=== PATIENT | female | born 1945 | race Caucasian/White ===

== ENCOUNTER 2025-04-17 00:53 | Inpatient (IN) | payer MEDICARE, SELFPAY ==
[2025-04-16 18:38] VITALS: BP 190/99
--- NOTE | 2025-04-16 19:48 | ED.GENMED ---
History of Present Illness
General
Chief Complaint: Abdominal Pain
Time Seen by Provider: 04/16/25 19:30
History of Present Illness
History of Present Illness:
79-year-old female presents to the emergency department for evaluation of right lower quadrant abdominal pain that has been ongoing for the past 2 days. She reports nausea, chills, and difficulty urinating. Denies vomiting or diarrhea. No fever,
sweats, dysuria, or hematuria. Denies history of abdominal surgeries
Review of Systems
Review of Systems
Allergies reviewed?: Yes
All Other Systems: ROS reviewed and negative except as documented in HPI and ROS
Phy Exam
Physical Exam
Physical Exam:
GEN: Well appearing, NAD, WDWN
HEENT: Oral mucosa moist, no scleral icterus
Cardiac: Regular rate and rhythm, no murmur
Lung: No respiratory distress, no tachypnea
Abdomen: Soft, focal right lower quadrant tenderness, no rigidity
MSK: No gross deformity or injuries
Skin: Good color, no pallor or jaundice, no rashes
Neuro: AO x3, moves all extremities freely
Psych: Calm, cooperative
Course
Orders/Labs/Results
Orders:
Orders
04/16/25 19:47
CT Abd/pel Without Iv Or Oral Urgent
Reason For Exam: RLQ pain
04/16/25 20:07
Complete Blood Count/With Diff Urgent
Comprehensive Metabolic Panel Urgent
04/16/25 21:37
HYDROmorphone [Dilaudid] 0.25 mg IV NOW STA
04/16/25 22:56
0.9% Sodium Chloride 1000 ml [Nss] 1,000 ml IV BOLUS
CefTRIAXone [Rocephin] 1,000 mg IV NOW STA
04/16/25 23:01
Urinalysis Reflex To Culture Urgent
Date Specimen was Collected: 04/16/25
Time Specimen was Collected: 22:56
Urine Microscopic Reflex Cult Urgent
Urine Culture Urgent
SHANELL Source: U
Specimen Description:
Date Specimen was Collected: 04/16/25
Time Specimen was Collected: 22:56
04/17/25 00:47
Admit/Transfer Patient As Directed
Co-Sign Provider:
Level of Care: Inpatient admission
Assign to:: Medical/Surgical
Physician / Group: Nemesio
Diagnosis: KULDIP, Hydronephrosis, Bladder Cancer
Reason for Hospitalization: KULDIP, Hydronephrosis, Bladder Cancer
Expected length of stay greater than two midnights?: Yes
ELOS- Estimated Length of Stay in days: 4
I certify the patient meets the requirements for IP care: Yes
Code Status As Directed
Resuscitation Status: Full Code
PRN Pain Medication Management As Directed
May give lesser potent ordered pain med per pt: Yes
preference::
Protocol:: Medication orders for pain may be administered in a
manner that supports deferring to patient preference
when the pt is:
- Requesting an ordered lesser potent pain medication.
Least to most potent pain medications are defined
as: acetaminophen < NSAID < tramadol < opioids
(morphine, oxycodone, hydromorphone).
- Requesting a lesser dose of the same medication IF
ORDERED.
- Requesting a less intrusive route of administration
if both routes are prescribed by the provider (PO <
IV).
Abnormal Lab Results
04/16/25 04/16/25
20:07 23:01
RBC 3.62 L 10^6/uL
(4.20-5.40)
Hgb 10.6 L g/dL
(12.0-16.0)
Hct 30.9 L %
(37.0-47.0)
Abs Immat Gran (auto) 0.1 H 10^3/uL
(0-0.05)
Absolute Neuts (auto) 9.4 H 10^3/uL
(1.4-6.5)
Absolute Lymphs (auto) 0.3 L 10^3/uL
(1.2-3.4)
Immature Gran % 0.6 H %
(0-0.5)
Neutrophils % 90.7 H %
(42.2-75.2)
Lymphocytes % 2.9 L %
(20.5-51.1)
Sodium 133 L mmol/L
(135-145)
Carbon Dioxide 17 L mmol/L
(22-30)
BUN 34 H mg/dl
(7-17)
Creatinine 2.0 H mg/dL
(0.6-1.0)
Glucose 115 H mg/dl
(70-99)
Ur Occult Blood Reflex 4+ A
(Negative)
Leukocyte Esterase Rfl 3+ A
(Negative)
Urine RBC >100 A /HPF
(0-2)
Urine WBC (Reflex) >100 A /HPF
(0-5)
Urine Bacteria (Reflex) Many A
(Negative)
Urine Albumin (Reflex) 3+ A
(Neg - Trace)
04/16/25 20:07
04/16/25 20:07
Vital Signs
Initial and Last Documented VS:
Initial Vital Signs
Temp Pulse Resp BP Pulse Ox
99.3 F 85 20 190/99 98
04/16/25 18:38 04/16/25 18:38 04/16/25 18:38 04/16/25 18:38 04/16/25 18:38
Last Documented Vital Signs
Temp Pulse Resp BP Pulse Ox
99.3 F 86 20 181/88 95
04/16/25 18:38 04/17/25 00:15 04/17/25 00:15 04/17/25 00:00 04/17/25 00:00
MDM/Problems Addressed
MDM/Problems Addressed:
Patient's right-sided hydronephrosis is noted again today, and combination with her visibly bloody urine this is concerning for recurrence of her bladder tumor with ureteral obstruction versus acute UTI with pyelonephritis. Will cover with
antibiotics given the urinalysis findings particular given presence of ureteral stent. KULDIP may be a product of hypovolemia coupled with urinary obstructive pathology. agrees with plan for admission but would prefer any urologic
interventions to be discussed with her outpatient urology team at [facility]
*Pulse Oximetry
SaO2: 98
Oxygen Mode of Delivery: Room air
Patient hypoxic: no
*Critical Care Note
Total Time (30-74mins, 75-104mins- exclusive of procedures): Not Applicable
Update Note
Update Note:
1052: Received records from [facility], the patient was admitted to that facility on March 13 due to hematuria with left hydronephrosis, during hospitalization she underwent cystoscopy with transurethral resection of a bladder
tumor, then underwent left nephrostomy tube. This tube was apparently removed within the past 2 weeks according to her . During that hospitalization the patient's BUN and creatinine were 14 and 0.99 respectively. Prior urine cultures from
earlier February grew Klebsiella, pansensitive. On April [address] of the abdomen pelvis with IV contrast that showed mild new right hydronephrosis and hydroureter.
ED Attending Note
-
Portions of this chart may have been created with voice recognition software.� Occasional wrong word or��sound alike� substitutions may have occurred due to the inherent limitations of voice recognition software.
Discharge Plan
Departure
Patient Disposition: Admit
Date of Disposition: 04/16/25
Time of Disposition: 23:45
Admit to: Med/Surg
Presentation/result/management discussed w/ accepting MD/DO: Hospitalist
Discharge Problem:
Acute kidney injury, Acute pyelonephritis
Interventions
Interventions:
*General Assessment Last Done: 04/16/25 20:04
*Neglect/Abuse Screening Last Done: 04/16/25 18:38
*ED COVID-19 Vaccine History Last Done: 04/16/25 20:04
*ED Influenza Vaccine History Last Done: 04/16/25 20:04
[facility] Fall Risk Assessment Tool Last Done: 04/16/25 20:05
*Risk Screen - Suicide (C-SSRS) Last Done: 04/16/25 20:04
QQ-[id number] Assessment Last Done: 04/16/25 20:15
[2025-04-16 20:03] VITALS: BP 189/90
[2025-04-16 20:04] VITALS: BMI 21.4
[2025-04-16 20:16] LABS: Hematocrit 30.9 % (37.0-47.0); Hemoglobin 10.6 g/dL (12.0-16.0); Mean Corp Hgb Conc. 34.3 g/dL (33.0-37.0); Mean Corpuscular Volume 85.4 fL (81.0-99.0); Nucleated Red Blood Cells % 0 %; Platelet Count 255 10^3/uL (130-400); Red Cell Dist. Width 12.8 % (11.5-14.5)
[2025-04-16 20:36] LABS: ALT (SGPT) 17 U/L (0-35); AST (SGOT) 34 U/L (14-36); Albumin 4.3 g/dl (3.5-5.0); Alkaline Phosphatase 49 U/L (38-126); Blood Urea Nitrogen 34 mg/dl (7-17); Calcium 8.9 mg/dl (8.4-10.2); Carbon Dioxide 17 mmol/L (22-30); Chloride 104 mmol/L (98-107); Estimated Creatinine Clearance 17 ml/min; Glucose 115 mg/dl (70-99); Potassium 4.4 mmol/L (3.5-5.1); Sodium 133 mmol/L (135-145); Total Protein 6.9 g/dl (6.3-8.2); eGFR 24.64
[2025-04-16 21:34] VITALS: BP 196/86
[2025-04-16] MEDS: DILAUDID 0.25 MG IV (21:45)
[2025-04-16 22:28] VITALS: BP 181/86
[2025-04-16] MEDS: ROCEPHIN 1000 MG IV (23:04)
[2025-04-16] MEDS: NSS 1000 IV (23:04)
[2025-04-16 23:11] VITALS: BP 178/82
[2025-04-16 23:44] LABS: Urine Character Cloudy (Clear)
[2025-04-17] VITALS (8 sets, daily range): BP systolic 152–187; BP diastolic 81–88; BMI 21.2
[2025-04-17 00:09] LABS: Urine Red Blood Cell >100 /HPF (0-2); Urine Squamous Cell >30 /LPF (Few); Urine Urothelial Cell >30 /LPF (FEW)
[2025-04-17 00:11] LABS: Urine White Cell >100 /HPF (0-5)
--- NOTE | 2025-04-17 00:49 | HPS.HSE ---
Family Physician
-
Family Physician: Karan Vilchis
Chief Complaint
-
Abd Pain, Fatigue
History of Present Illness
Patient is an 79y F with PMH significant for breast cancer, uterine cancer and recently diagnosed bladder cancer who presents to ED complaining of generalized fatigue and RLQ abdominal pain. History obtained from patient and from via
phone. Patient was hospitalized at [facility] 03/13 - 03/16 for evaluation of persistent hematuria which had been present for about a month at that point. She had completed two courses of outpatient abx for suspected UTI with no
improvement in the hematuria. Imaging at [facility] revealed L hydronephrosis with 5.5cm bladder mass. Patient underwent TURBT on 03/14. Pathology revealed invasive high-grade bladder carcinoma. She underwent L PCN on 03/15 and was discharged to
home on 03/16. Patient has been very busy since that time with additional outpatient testing, imaging studies, physician follow-ups, etc.
She underwent conversion of L PCN to double-J stent on 03/26. CT Chest (multiple, scattered pulm nodules) on 04/08. And bone scan (no abnormal uptake) on 04/08.
notes that she has been significantly more fatigued over the past several days. She has noted increased urinary frequency as well as some recurrent / intermittent hematuria.
Today she slept for much of the day. After waking from an afternoon nap, patient complained of RLQ abdominal pain.
The pain was quite severe and patient presented to the ED for further evaluation and treatment.
At the time of my examination, patient is sleeping comfortably. When awakened she is somewhat confused due to sleep, Dilaudid, etc and has some difficulty contributing to this history.
Medical History
Past Medical History
Past Medical History: Reports Other
Additional Past Medical History:
Bladder Carcinoma
Breast Cancer s/p Lumpectomy
Uterine Cancer s/p Hysterectomy
GERD / Mcdaniel's Esophagus
Past Surgical History: Reports Other
Additional Past Surgical History:
TURBT (03/14) - 5.5cm invasive high-grade bladder carcinoma
Left PCN (03/15)
Conversion of L PCN to L Double-J Stent (03/26)
Right Lumpectomy
Hysterectomy
Social History
Tobacco: Non-smoker
Alcohol: Occasional
Drug: None
Personal:
Living: With Family
Family History
Family History: Not pertinent
Allergies / Home Medications
Allergies reflects when Allergies were last updated in [employer].
Home Medications with original date entered in [employer]
Allergy/Medication List:
Allergies
Allergy/AdvReac Type Severity Reaction Status Date / Time
ciprofloxacin Allergy Mild Unknown Verified 04/16/25 21:55
moxifloxacin (From Avelox) Allergy Mild Unknown Verified 04/16/25 21:55
fluroquinolones Allergy Unknown Uncoded 04/16/25 21:55
hay Allergy Unknown Uncoded 04/16/25 20:07
Home Medications
acetaminophen 500 mg tablet 500 mg PO Q6H PRN pain 04/16/25
diphenhydramine HCl 25 mg capsule (Benadryl) 25 mg PO HS PRN sleep 04/16/25
rabeprazole 20 mg tablet,delayed release (AcipHex) 20 mg PO DAILY 04/16/25
tamoxifen 20 mg tablet 20 mg PO DAILY 04/16/25
Review of Systems
-
History Source: Patient
A 12 point ROS was completed and negative except as noted: Yes
Constitutional: Reports Fatigue; Denies Fever or Chills
Respiratory: Denies Cough or Trouble Breathing
Cardiac: Denies Chest Pain or Palpitations
Abdomen/GI: Reports Abdominal Pain; Denies Nausea, Vomiting, Diarrhea, Constipated, Bloody Stools or Black Stools
: Reports Frequency, Flank Pain and Bleeding; Denies Dysuria or Difficulty Voiding
Musculoskeletal: Denies Joint Pain or Edema
Neurological: Denies Dizzy or Headache
Psych: Denies Depression or Anxiety
Physical Exam
Vital Signs
Vital Signs
Temp Pulse Resp BP Pulse Ox
99.3 F 86 20 181/88 95
04/16/25 18:38 04/17/25 00:15 04/17/25 00:15 04/17/25 00:00 04/17/25 00:00
Physical Exam
General: Other (79y F sleeping comfortably. Easily awakened. No acute distress. [id number].)
HEENT: Moist mucous membranes and PERRLA
Respiratory: Clear; No Wheezes, Rales or Rhonchi
Cardiac: S1/S2 and Regular Rhythm; No Murmur
GI: Soft, Non Distended, Normal Bowel Sounds and Other (Pos RLQ tenderness with voluntary guarding. Pos BS.)
Genito-urinary: Costovertebral angle tend (R CVAT.)
Musculoskeletal: No Clubbing, No Cyanosis and No Edema
Neuro: Awake, Alert and Nonfocal/grossly intact
Laboratory Results
-
04/16/25 20:07
04/16/25 20:07
Laboratory Results
Total Bilirubin 0.8 mg/dl (0.2-1.3) 04/16/25 20:07
AST 34 U/L (14-36) 04/16/25 20:07
ALT 17 U/L (0-35) 04/16/25 20:07
Alkaline Phosphatase 49 U/L (38-126) 04/16/25 20:07
Impression/Plan
-
A/P: Patient is an 79y F with PMH significant for recently diagnosed bladder cancer who presents to ED complaining of RLQ abdominal pain and urinary symptoms.
Right Hydronephrosis
KULDIP
- Admit for further evaluation and treatment.
- ? ascending UTI / infectious process versus obstructive / malignant process.
- SCr = 2.0 compared to recent baseline of 0.9.
- Cover with IV abx for now pending culture data.
- IVF support and follow for any improvement in renal function.
- Urology evaluation for additional recommendations.
- ? Cysto / stent versus R PCN.
- Follow temperature curve and monitor for any new / worsening symptoms.
- Also note that serial imaging from [facility] shows progressive volume loss / atrophy of the L kidney over the past month - potentially also contributing to declining renal function.
Invasive High-Grade Bladder Cancer
- Recent diagnosis. Suspect metastatic based on scattered pulmonary nodules, liver lesions, etc.
- Extensive records reviewed from [facility] ('Other Health Care Facility Information' scanned into chart).
- Tentative plan per is to begin immunotherapy on Saturday and have CT-guided lung nodule biopsy on Saturday.
Normocytic Anemia
- Fairly stable compared to recent baseline (11.1 to 10.6).
- Intermittent hematuria noted - due to infection v malignancy.
- Follow for changes in H&H. Check iron studies and replace if indicated.
GERD / Mcdaniel's Esophagus
- Continue daily PPI.
Confusion / Mild Dementia
- Patient with some noted confusion during [facility] stay as well.
- Suspect degree of underlying / mild dementia exacerbated by hospitalization / acute illness.
- Monitor for any agitation / acute delirium / etc.
DVT Prophylaxis: SCDs
Code Status: Full
[2025-04-17] MEDS: NSS 1000 IV ×2 (03:40→17:44)
[2025-04-17 07:33] LABS: Hematocrit 29.4 % (37.0-47.0); Hemoglobin 10.2 g/dL (12.0-16.0); Mean Corp Hgb Conc. 34.7 g/dL (33.0-37.0); Mean Corpuscular Volume 87.2 fL (81.0-99.0); Platelet Count 255 10^3/uL (130-400); Red Cell Dist. Width 13.0 % (11.5-14.5)
[2025-04-17 08:13] LABS: Blood Urea Nitrogen 38 mg/dl (7-17); Calcium 8.5 mg/dl (8.4-10.2); Carbon Dioxide 17 mmol/L (22-30); Chloride 107 mmol/L (98-107); Estimated Creatinine Clearance 11 ml/min; Glucose 114 mg/dl (70-99); Iron 88 ug/dl (37-170); Potassium 4.6 mmol/L (3.5-5.1); Sodium 135 mmol/L (135-145); eGFR 14.56
--- NOTE | 2025-04-17 08:22 | W.PN.UPDATE ---
Update Note
Progress Note Update
81 pages of external medical records from [facility] reviewed
Prior urologic history as follows:
- hospitalized [facility] 03/13 - 03/16 for persistent gross hemturia x1 mo
- CT imaging => left hydronephrosis and 5.5 cm bladder mass
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
- 03/15: s/p left PCN insertion by IR
- 03/26: conversion of left PCN to double-J stent
- 04/08: CT Chest: multiple scattered pulmonary nodules
- 04/08: [facility] bone scan: no abnormal uptake
Presented to [facility] ED w/ fatigue x several days and increased frequency and intermittent hematuria.
Noted severe RLQ abdominal pain.
04/16: CT imaging reviewed => right moderate hydroureteronephrosis, no gross abdominal/pelvic lymphadenopathy noted, left internal double-J stent in place, left renal parenchymal atrophy
Recommendations:
- as patient has new right hydro in context of recently diagnosed pT2 MIBC, this is likely cT3
- given likelihood tumor extension in perivesical fat (and muscularis) - advise IR consult for insertion of right PCN
- do not recommend cysto + right stent insertion given high rate of failure from malignant extrinsic compression from cT3 disease
D/w Hospitalist.
[2025-04-17 08:23] LABS: Total Iron Binding Capacity 408 ug/dl (265-497)
[2025-04-17 09:00] LABS: Ferritin 22.4 ng/ml (11.1-264.0)
[2025-04-17 09:31] LABS: Folate 11.3 ng/ml (2.76-20); Vitamin B12 551 pg/ml (239-931)
[2025-04-17] MEDS: PROTONIX 40 MG PO (10:12)
[2025-04-17 10:29] LABS: INR 1.07; PT 14.1 Sec (11.4-14.6)
--- NOTE | 2025-04-17 10:43 | W.PN.UPDATE ---
Update Note
Progress Note Update
Extensive phone discussion had w/ patient's spouse (Sung, EMILYKurt) re: her urologic issues currently.
Has had all her urologic care w/ Dr. Corral @[facility].
Planned for repeat chest/abdominal/pelvic imaging this week in addition to starting IV immunotherapy as well.
Given her worsening renal function, I advised right PCN placement of obstructed right kidney from apparently malignant extrinsic compression (suspected cT3 from CT imaging 04/16).
Cr 2.0 to 3.1 this AM.
Spouse wishes to have her continuity of care @[facility] if possible, but understands if Cr does not downtrend w/ hydration/diet in next 24 hrs, she will require PCN placement.
Plan:
- Telephone message left for Dr. Corral (patient's urologist)
- Regular diet today w/ IVF hydration
- NPO @[place]
- Recheck AM labs - if Cr worsened, will require right PCN by IR tomorrow
D/w IR and Hospitalist.
D/w patient's spouse (30 min on telephone).
--- NOTE | 2025-04-17 10:57 | W.PN.HOSP.TC ---
Today's Communication/Plan
-
see plan
Assessment / Plan
Assessment / Plan
Gen: NAD, AAOx3.
Eyes: EOMI, PERRLA, no scleral icterus.
Neck: supple.
CV: RRR, +S1/S2, no m/r/g.
Resp: CTAB, no rales, wheezes, or rhonchi.
Abd: +BS, soft, NT, ND
Skin: No rashes.
Neuro: CN 2-12 intact, non-focal.
Psych: Normal mood and affect.
CT A/P:
Pulmonary nodules suspicious for metastatic disease.
Right hydroureteronephrosis without renal or ureteral calculus. Uncertain etiology.
Ureteral and perinephric soft tissue stranding may be related to an obstructive process. The possibility of superimposed infection/pyelonephritis cannot be excluded.
Mild duodenitis versus direct extension of inflammatory changes related to the right kidney.
Cholelithiasis.
Small hepatic cysts.
Diverticulosis without acute diverticulitis.
The appendix is normal.
Small sliding hiatal hernia.
Mild scoliosis. Advanced multilevel discogenic and facet degenerative changes.
Incidental small lower outer quadrant right breast nodule with associated small coarse calcification. Nonspecific. Probable fibroadenoma.
KULDIP due to R Hydronephrosis
-case discussed at length with Drs. Correa and Aurora. Cont IVFs and if Cr does not improve will place R PCN tomorrow.
-cont Rocephin, follow UCx
-also note that serial imaging from [facility] shows progressive volume loss/atrophy of the L kidney over the past month which potentially is also contributing to declining renal function
Invasive High-Grade Bladder Cancer
-Recent diagnosis. Suspect metastatic based on scattered pulmonary nodules, liver lesions, etc.
-Tentative plan per is to begin immunotherapy on Saturday and have CT-guided lung nodule biopsy on Saturday.
Other problems:
Normocytic Anemia: Hb stable, trend, Fe studies unremarkable, Intermittent hematuria noted - due to infection v malignancy.
GERD with h/o Mcdaniel's Esophagus: cont PPI
Confusion/Mild Dementia
FULL/SCDs
Total time spent on today's encounter was 50 minutes which included time spent in counseling the patient/family regarding diagnosis and treatment plan as listed above, goals of care, and symptom management. Case was discussed with nursing staff,
specialists, and care coordinators/case management. All labs and imaging personally reviewed by me. Remainder the time spent in detailed review of previous records, lab data, imaging, and other medical provider documentation.
Anticipated Discharge: 24 - 48 hours
Subjective/Interval History
-
Date of Service: April 17, 2025
No new complaints.
Objective Data
-
Labs:
Laboratory Results
04/17/25 04/17/25
07:16 10:08
WBC 8.9
Hgb 10.2 L
Hct 29.4 L
Plt Count 255
PT 14.1
INR 1.07
Sodium 135
Potassium 4.6
Chloride 107
Carbon Dioxide 17 L
BUN 38 H
Creatinine 3.1 H
Glucose 114 H
Calcium 8.5
Vital Signs:
Vital Signs
Temp Pulse Resp BP Pulse Ox
97.8 F 79 14 162/87 96
04/17/25 07:15 04/17/25 07:15 04/17/25 07:15 04/17/25 10:42 04/17/25 07:15
--- NOTE | 2025-04-17 12:21 | CM ---
Patient seen bedside, initial assessment completed. Patient is an 79y F with PMH significant for breast cancer, uterine cancer and recently diagnosed bladder cancer who presents to ED complaining of generalized fatigue and RLQ abdominal pain.
Patient resides w/ spouse in [place], 2 steps to enter. Patient uses RW or cane while in the house. Independent w/ ADLs and personal care. Patient has a shower chair but hasn't used yet. Denies SNF/HC hx.
Address, point of contact and insurance verified
PCP: Karan Vilchis
Pharmacy: [place], [place]
Plan: Anticipate home, no needs
[2025-04-17] MEDS: STERILE WATER FOR INJECTION 10 ML IV (21:15)
[2025-04-17] MEDS: ROCEPHIN 1000 MG IV (21:16)
[2025-04-17] MEDS: TYLENOL 500 MG PO (21:58)
[2025-04-18] MEDS: NSS 1000 IV (05:48)
--- NOTE | 2025-04-18 08:17 | W.PN.HOSP.TC ---
Today's Communication/Plan
-
see plan
Assessment / Plan
Assessment / Plan
Gen: NAD, AAOx3.
Eyes: EOMI, PERRLA, no scleral icterus.
Neck: supple.
CV: remains RRR, +S1/S2, no m/r/g.
Resp: CTAB anteriorly, no rales, wheezes, or rhonchi.
Abd: +BS, soft, NT (states periumbilical discomfort with palpation but does not guard or wince during physical exam), ND
Skin: No rashes.
Neuro: CN 2-12 intact, non-focal.
Psych: Normal mood and affect.
CT A/P:
Pulmonary nodules suspicious for metastatic disease.
Right hydroureteronephrosis without renal or ureteral calculus. Uncertain etiology.
Ureteral and perinephric soft tissue stranding may be related to an obstructive process. The possibility of superimposed infection/pyelonephritis cannot be excluded.
Mild duodenitis versus direct extension of inflammatory changes related to the right kidney.
Cholelithiasis.
Small hepatic cysts.
Diverticulosis without acute diverticulitis.
The appendix is normal.
Small sliding hiatal hernia.
Mild scoliosis. Advanced multilevel discogenic and facet degenerative changes.
Incidental small lower outer quadrant right breast nodule with associated small coarse calcification. Nonspecific. Probable fibroadenoma.
KULDIP due to R Hydronephrosis:
-place R PCN today
-with non-AG met acidosis (AG 13) presumably due to RTA +/- KULDIP, start D5W with 150meq NaHCO3 @ 125cc/hr
-case discussed with Drs. Correa and Aurora
-cont Rocephin, UCx with >100K mixed jose miguel (but is being instrumented today)
-c/s renal
-also note that serial imaging from [facility] shows progressive volume loss/atrophy of the L kidney over the past month which potentially is also contributing to declining renal function
Invasive High-Grade Bladder Cancer
-Recent diagnosis. Suspect metastatic based on scattered pulmonary nodules, liver lesions, etc.
-Tentative plan per is to begin immunotherapy on and have CT-guided lung nodule biopsy on 04/20.
Other problems:
Normocytic Anemia: Hb stable, trend, Fe studies unremarkable, Intermittent hematuria noted - due to infection v malignancy.
GERD with h/o Mcdaniel's Esophagus: cont PPI
Confusion/Mild Dementia
FULL/SCDs
Anticipated Discharge: 24 - 48 hours
Subjective/Interval History
-
Date of Service: April 18, 2025
No new complaints. States some mild abd discomfort which is not new.
Objective Data
-
Labs:
Laboratory Results
04/18/25
06:33
WBC Pending
Hgb Pending
Hct Pending
Plt Count Pending
Sodium Pending
Potassium Pending
Chloride Pending
Carbon Dioxide Pending
BUN Pending
Creatinine Pending
Glucose Pending
Calcium Pending
Vital Signs:
Vital Signs
Temp Pulse Resp BP Pulse Ox
98.6 F 89 18 159/86 97
04/17/25 23:42 04/17/25 23:42 04/17/25 23:42 04/17/25 23:42 04/17/25 23:42
I&O
04/17/25 04/18/25 04/19/25
06:59 06:59 06:59
Intake Total 1040 / 1040
Balance 1040 / 1040
[2025-04-18 08:22] LABS: Hematocrit 29.2 % (37.0-47.0); Hemoglobin 10.0 g/dL (12.0-16.0); Mean Corp Hgb Conc. 34.2 g/dL (33.0-37.0); Mean Corpuscular Volume 87.7 fL (81.0-99.0); Platelet Count 248 10^3/uL (130-400); Red Cell Dist. Width 13.0 % (11.5-14.5)
--- NOTE | 2025-04-18 08:25 | W.PN.URO.CBU ---
Today's Communication / Plan
-
Keep NPO
To IR for right PCN insertion
OK for diet after procedure if clinically stable
D/w spouse (Sung).
D/w Dr. Soliz (Hospitalist).
D/w Dr. Simon (IR).
Assessment / Plan
-
Acute renal failure
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
Cr progression: 2.0 => 3.1 => 5.2
CT imaging demonstrated new right hydroureteronephrosis, indwelling left ureteral stent, post-op changes s/p TURBT.
Extensive telephone discussions had w/ patient's spouse (Sung) yesterday and this morning re: recommendation for right PCN.
Patient and spouse understand critical nature of her progressing renal failure from high-grade obstructive uropathy secondary to tumor compression of distal right ureter.
Diagnosis
-
Date of Service: April 18, 2025
-
Patient Diagnosis:
Acute renal failure
Right hydroureteronephrosis secondary to malignant extrinsic compression
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
Subjective
-
NPO since midnight.
AM labs w/ Cr 5.2.
Objective
-
Vital Signs
Temp Pulse Resp BP Pulse Ox
99.4 F 82 16 182/101 95
04/18/25 09:07 04/18/25 09:07 04/18/25 09:07 04/18/25 09:07 04/18/25 09:07
Intake and Output
04/17/25 04/18/25 04/19/25
06:59 06:59 06:59
Intake Total 1040 / 1040
Balance 1040 / 1040
Intake:
Oral fluids 240 / 240
IV fluids (Total) 800 / 800
Other:
Number of approximated MODERATE 7
amounts of urine
Laboratory Results
04/18/25 06:33
04/18/25 06:33
Physical Exam
-
General - well developed, well nourished, no acute distress
Abdomen - soft, non-tender, non-distended, no CVAT
Skin - warm & dry with no rash
Neuro - AOx3, no motor deficits
Extremities - no clubbing, no cyanosis, no edema
Care Review
Data Reviewed
Discussed with: Hospitalist and IRAD
CT Scan: Report Pers Reviewed and Image Pers Reviewed
Total Time Spent with Patient (in minutes): 25
[2025-04-18] MEDS: PROTONIX 40 MG PO (08:28)
[2025-04-18 08:54] LABS: Blood Urea Nitrogen 45 mg/dl (7-17); Calcium 8.4 mg/dl (8.4-10.2); Carbon Dioxide 12 mmol/L (22-30); Chloride 109 mmol/L (98-107); Estimated Creatinine Clearance 7 ml/min; Glucose 89 mg/dl (70-99); Potassium 4.4 mmol/L (3.5-5.1); Sodium 134 mmol/L (135-145); eGFR 7.83
[2025-04-18 09:07] VITALS: BP 182/101
[2025-04-18] MEDS: SODIUM BICARBONATE 1150 MEQ IV (09:52)
[2025-04-18] MEDS: NSS IV (10:32)
--- NOTE | 2025-04-18 11:26 | W.CON.NEPH ---
Consultation
-
Date/Time Consultation Requested: April 18, 2025 10:00 a.m.
Date/Time Consultation Performed: April 18, 2025 11:00 a.m.
Requesting Provider: Emir Soliz
Performing Provider: Dr. Parr
Reason for Consultation: acute kidney injury
Medical History
-
Chief Complaint: acute kidney injury
History of Present Illness:
79y F with PMH significant for breast cancer, uterine cancer and recently diagnosed bladder cancer who presents to ED complaining of generalized fatigue and RLQ abdominal pain. patient was found to have obstructive uropathy and acute kidney
injury
renal consult for acute kidney injury
imaging on this admission shows right hydronephrosis with a left internal double-J stent an atrophic kidney.
previous recent history hospitalized at [facility] 03/13 - 03/16 for evaluation of persistent hematuria which had been present for about a month at that point. She had completed two courses of outpatient abx for suspected UTI with no
improvement in the hematuria. Imaging at [facility] revealed L hydronephrosis with 5.5cm bladder mass. Patient underwent TURBT on 03/14. Pathology revealed invasive high-grade bladder carcinoma. She underwent L PCN on 03/15 and was discharged to
home on 03/16.
She underwent conversion of L PCN to double-J stent on 03/26.
All history was obtained in reviewing the chart discussion with the medicine as the patient has baseline dementia.
Admitted with a creatinine of 2 progressive over 48 hours currently 5.2
Past Medical History
breast cancer, bladder cancer, hydronephrosis and obstructive uropathy
Social History
Tobacco: Non-Smoker
Alcohol: None
Family History
Family History: Not Pertinent
Allergies / Home Medications
Allergy/AdvReac Type Severity Reaction Status Date / Time
ciprofloxacin Allergy Mild Unknown Verified 04/16/25 21:55
moxifloxacin (From Avelox) Allergy Mild Unknown Verified 04/16/25 21:55
fluroquinolones Allergy Unknown Uncoded 04/16/25 21:55
hay Allergy Unknown Uncoded 04/16/25 20:07
�Medication �Instructions �Recorded �Confirmed �Type
acetaminophen 500 mg tablet 500 mg PO Q6H PRN pain 04/16/25 04/16/25 History
diphenhydramine HCl 25 mg capsule 25 mg PO HS PRN sleep 04/16/25 04/16/25 History
(Benadryl)
rabeprazole 20 mg tablet,delayed 20 mg PO DAILY GERD 04/16/25 04/16/25 History
release (AcipHex)
tamoxifen 20 mg tablet 20 mg PO DAILY Cancer 04/16/25 04/16/25 History
Review of Systems
-
abdominal pain
Unable to obtain full review of systems at this time due to: Dementia
All other systems: Negative unless noted
Physical Exam
Vital Signs
Vital Signs
Temp Pulse Resp BP Pulse Ox
99.4 F 82 16 182/101 95
04/18/25 09:07 04/18/25 09:07 04/18/25 09:07 04/18/25 09:07 04/18/25 09:07
Lab Results
WBC 8.3 10^3/uL (4.8-10.8) 04/18/25 06:33
RBC 3.33 10^6/uL (4.20-5.40) L 04/18/25 06:33
Hgb 10.0 g/dL (12.0-16.0) L 04/18/25 06:33
Hct 29.2 % (37.0-47.0) L 04/18/25 06:33
Plt Count 248 10^3/uL (130-400) 04/18/25 06:33
Sodium 134 mmol/L (135-145) L 04/18/25 06:33
Potassium 4.4 mmol/L (3.5-5.1) 04/18/25 06:33
Chloride 109 mmol/L (98-107) H 04/18/25 06:33
Carbon Dioxide 12 mmol/L (22-30) L* 04/18/25 06:33
BUN 45 mg/dl (7-17) H 04/18/25 06:33
Creatinine 5.2 mg/dL (0.6-1.0) H* 04/18/25 06:33
eGFR 7.83 04/18/25 06:33
Glucose 89 mg/dl (70-99) 04/18/25 06:33
Calcium 8.4 mg/dl (8.4-10.2) 04/18/25 06:33
Albumin 4.3 g/dl (3.5-5.0) 04/16/25 20:07
Physical Exam
General no acute distress
HEENT no cephalic atraumatic extraocular muscle intact no scleral icterus no JVD neck supple
lungs clear to auscultation bilateral
heart regular S1-S2 positive
abdomen soft nontender positive bowel sounds
extremities no edema pulses present bilateral
Neurologically nonfocal
Skin no lesions no abrasions no petechiae
Psych normal affect no bizarre behavior
Data Reviewed
-
CT Scan: Image Personally Visualized and interpreted
Labs: Labs Reviewed by me, Discussed with Physician and Discussed with Nurse
Assessment/Plan
-
79y F with PMH significant for breast cancer, uterine cancer and recently diagnosed bladder cancer who presents to ED complaining of generalized fatigue and RLQ abdominal pain. patient was found to have obstructive uropathy and acute kidney
injury
renal consult for acute kidney injury
imaging on this admission shows right hydronephrosis with a left internal double-J stent an atrophic kidney.
previous recent history hospitalized at [facility] 03/13 - 03/16 for evaluation of persistent hematuria which had been present for about a month at that point. She had completed two courses of outpatient abx for suspected UTI with no
improvement in the hematuria. Imaging at [facility] revealed L hydronephrosis with 5.5cm bladder mass. Patient underwent TURBT on 03/14. Pathology revealed invasive high-grade bladder carcinoma. She underwent L PCN on 03/15 and was discharged to
home on 03/16.
She underwent conversion of L PCN to double-J stent on 03/26.
All history was obtained in reviewing the chart discussion with the medicine as the patient has baseline dementia.
Admitted with a creatinine of 2 progressive over 48 hours currently 5.2
impression
acute kidney injury secondary to obstructive uropathy right-sided hydronephrosis
metabolic acidosis secondary to obstruction
mild hyponatremia
plan
decompression with right percutaneous nephrostomy tube placed by Interventional Radiology today
antibiotics
sodium bicarbonate drip may need to convert once decompression to a hypotonic solution
repeat labs post decompression
renal dose all medications for GFR less than 10 until we reach a steady state
admitting creatinine 2 uncertain to baseline
[2025-04-18 11:49] VITALS: BP 171/93
[2025-04-18 12:08] VITALS: BP 163/90; BP_SYST 93
--- NOTE | 2025-04-18 12:33 | W.PN.UPDATE ---
Update Note
Progress Note Update
Preprocedure US demonstrated significant improvement in hydronephrosis, and fluid surrounding right kidney. Calyceal rupture likely occurred between recent CT and preprocedure US.
Able to place 8.5 Fr right PCN. Upon injection of contrast into collecting system, there was contrast extravasation, confirming perforation of collecting system.
[2025-04-18 12:48] VITALS: BP 144/72
[2025-04-18 16:11] VITALS: BP 165/93
[2025-04-18] MEDS: ROCEPHIN 1000 MG IV (21:34)
[2025-04-18] MEDS: STERILE WATER FOR INJECTION 10 ML IV (21:34)
[2025-04-18] MEDS: DILAUDID 0.5 MG IV (21:51)
[2025-04-18 22:02] LABS: Blood Urea Nitrogen 33 mg/dl (7-17); Calcium 8.6 mg/dl (8.4-10.2); Carbon Dioxide 22 mmol/L (22-30); Chloride 103 mmol/L (98-107); Estimated Creatinine Clearance 11 ml/min; Glucose 96 mg/dl (70-99); Potassium 3.7 mmol/L (3.5-5.1); Sodium 135 mmol/L (135-145); eGFR 14.56
[2025-04-18 23:30] VITALS: BP 189/103
[2025-04-19] MEDS: APRESOLINE 5 MG IV (00:45)
[2025-04-19] MEDS: SODIUM BICARBONATE 1150 MEQ IV ×2 (00:58→12:30)
[2025-04-19 02:56] VITALS: BP 150/82
[2025-04-19 04:22] LABS: Hematocrit 28.8 % (37.0-47.0); Hemoglobin 9.9 g/dL (12.0-16.0); Mean Corp Hgb Conc. 34.4 g/dL (33.0-37.0); Mean Corpuscular Volume 87.0 fL (81.0-99.0); Platelet Count 272 10^3/uL (130-400); Red Cell Dist. Width 13.0 % (11.5-14.5)
[2025-04-19 04:30] LABS: Blood Urea Nitrogen 30 mg/dl (7-17); Calcium 8.5 mg/dl (8.4-10.2); Carbon Dioxide 24 mmol/L (22-30); Chloride 101 mmol/L (98-107); Estimated Creatinine Clearance 12 ml/min; Glucose 127 mg/dl (70-99); Potassium 3.6 mmol/L (3.5-5.1); Sodium 135 mmol/L (135-145); eGFR 16.45
[2025-04-19] MEDS: DILAUDID 0.5 MG IV (06:05)
--- NOTE | 2025-04-19 08:26 | W.PN.HOSP.TC ---
Addendum entered and electronically signed by Ashok Morris MD 04/19/25 15:48:
Unable to contact today so left voice message at the phone listed on the chart (not much details left to avoid HIPAA violation).
Original Note:
Today's Communication/Plan
-
S/P PCN. IV fluids.
Assessment / Plan
Assessment / Plan
Physical exam:
General: Acute on chronically ill
HEENT: Normocephalic, Atraumatic and Moist Mucous Membranes
Respiratory: Clear to Auscultation; Negative Wheezes, Rales or Rhonchi
Cardiac: Regular Rhythm and S1/S2
GI: Soft, Nontender and Nondistended
Musculoskeletal: No Clubbing, No Cyanosis and No Edema
Neuro: Awake, Alert and Disoriented, no neurological deficits
Psych: Calm, limited judgment and insight
A/P:
KULDIP:
Likely due to obstructive uropathy with right hydroureteronephrosis secondary to malignant stricture and compression from tumor
Status post right percutaneous nephrostomy by IR on 04/18 (noted with rupture of right renal collecting system by proceduralist prior to procedure)
Remains on bicarb drip-->Will change composition of fluids.
Creatinine down to 2.8 today (peak at 5.2)
Nephrology consult appreciated
IR eval appreciated
Urology consult appreciated
No clear evidence of active infection at the moment although at risk of. Urine culture no growth---> discontinue antibiotics today.
PT OT eval
Metabolic acidosis:
On bicarb infusion--> will transition to half-normal saline today for postobstructive diuresis and acidosis resolved over the last 24 hours.
Bladder cancer, muscle-invasive:
Plan for initiation of immunotherapy as outpatient
Pain control as needed
Intermittent hematuria:
Likely related to bladder CA
Anemia:
Not far off baseline
Combination of anemia of chronic disease and acute blood loss anemia from transient hematuria
Monitor hemoglobin
Mcdaniel esophagus:
Continue oral PPI
Elevated blood pressure, without diagnosis of hypertension:
On IV antihypertensives as needed--> will discontinue and reevaluate if oral antihypertensives needed
Dementia:
Monitor mental status
DVT prophylaxis:
SCDs
CODE STATUS:
Full code
Total time spent on today's encounter was 52 minutes which included time spent in counseling the patient/family regarding diagnosis and treatment plan as listed above, goals of care, and symptom management. Case was discussed with nursing staff,
specialists, and care coordinators/case management. All labs and imaging personally reviewed by me. Remainder the time spent in detailed review of previous records, lab data, imaging, and other medical provider documentation.
Anticipated Discharge: 24 - 48 hours
Subjective/Interval History
-
Date of Service: April 19, 2025
She does not know what is going on during this hospitalization. Denies nausea vomiting or worsening abdominal pain.
Objective Data
-
Labs:
Laboratory Results
04/18/25 04/19/25
21:23 03:57
WBC 11.4 H
Hgb 9.9 L
Hct 28.8 L
Plt Count 272
Sodium 135 135
Potassium 3.7 3.6
Chloride 103 101
Carbon Dioxide 22 24
BUN 33 H 30 H
Creatinine 3.1 H 2.8 H
Glucose 96 127 H
Calcium 8.6 8.5
Vital Signs:
Vital Signs
Temp Pulse Resp BP Pulse Ox
99.9 F 103 18 150/82 95
04/19/25 05:27 04/19/25 02:56 04/19/25 02:56 04/19/25 02:56 04/19/25 02:56
I&O
04/18/25 04/19/25 04/20/25
06:59 06:59 06:59
Intake Total 1040 / 1040 1250 / 1250
Output Total 750 / 750 325 / 325
Balance 1040 / 1040 500 / 500 -325 / -325
[2025-04-19 08:57] VITALS: BP 135/72
[2025-04-19] MEDS: PROTONIX 40 MG PO (09:38)
--- NOTE | 2025-04-19 11:36 | PN.IRAD.UPD ---
Update Note - IRAD
- -
went bedside at [address] and clave on patient's right sided pcn, for tube flushing as ordered per Sunny. ap
--- NOTE | 2025-04-19 14:06 | W.PN.URO.CBU ---
Today's Communication / Plan
-
Trend Cr (downtrending s/p right PCN as expected)
Extensive clinical message left for patient's urologist (Dr. Corral @[facility]) re: care and F/U plan (physician out of office until 04/23)
Advise VN confirmation prior to discharge
F/U w/ Dr. Corral for PCN management and continuity of bladder cancer care
D/w Hospitalist.
Assessment / Plan
-
Acute renal failure
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
Cr progression: 2.0 => 3.1 => 5.2 (right PCN insertion) => 3.1 => 2.8
Diagnosis
-
Date of Service: April 19, 2025
-
Patient Diagnosis:
Acute renal failure
Right hydroureteronephrosis secondary to malignant extrinsic compression
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
04/18: s/p insertion of right PCN (IR)
Subjective
-
Tolerating diet.
Right PCN draining w/o issues.
Objective
-
Vital Signs
Temp Pulse Resp BP Pulse Ox
98.3 F 80 12 135/72 93
04/19/25 08:57 04/19/25 08:57 04/19/25 08:57 04/19/25 08:57 04/19/25 08:57
Intake and Output
04/18/25 04/19/25 04/20/25
06:59 06:59 06:59
Intake Total 1040 / 1040 1250 / 1250
Output Total 750 / 750 1075 / 1075
Balance 1040 / 1040 500 / 500 -1075 / -1075
Intake:
Oral fluids 240 / 240
IV fluids (Total) 800 / 800 1250 / 1250
Output:
Urinary Drain Output (Total) 750 / 750 1074 / 1074
Right Nephrostomy 750 / 750 1074 / 1074
Other:
Number of approximated MODERATE 7 2 1
amounts of urine
Laboratory Results
04/19/25 03:57
04/19/25 03:57
Physical Exam
-
General - well developed, well nourished, no acute distress
Abdomen - soft, non-tender, non-distended, right PCN draining into bag
Neuro - AOx3, no motor deficits
Care Review
Data Reviewed
Discussed with: Hospitalist, IRAD and Family
CT Scan: Report Pers Reviewed and Image Pers Reviewed
--- NOTE | 2025-04-19 14:28 | W.PN.NEPH.PH ---
Today's Communication / Plan
-
Maintain IV fluids 1 more day
Follow BMP
Assessment/Plan
-
79y F with PMH significant for breast cancer, uterine cancer and recently diagnosed bladder cancer who presents to ED complaining of generalized fatigue and RLQ abdominal pain. patient was found to have obstructive uropathy and acute kidney
injury
renal consult for acute kidney injury
imaging on this admission shows right hydronephrosis with a left internal double-J stent an atrophic kidney.
previous recent history hospitalized at [facility] 03/13 - 03/16 for evaluation of persistent hematuria which had been present for about a month at that point. She had completed two courses of outpatient abx for suspected UTI with no
improvement in the hematuria. Imaging at [facility] revealed L hydronephrosis with 5.5cm bladder mass. Patient underwent TURBT on 03/14. Pathology revealed invasive high-grade bladder carcinoma. She underwent L PCN on 03/15 and was discharged to
home on 03/16.
She underwent conversion of L PCN to double-J stent on 03/26.
All history was obtained in reviewing the chart discussion with the medicine as the patient has baseline dementia.
Admitted with a creatinine of 2 progressive over 48 hours currently 5.2
impression
acute kidney injury secondary to obstructive uropathy right-sided hydronephrosis
metabolic acidosis secondary to obstruction
mild hyponatremia
plan
decompression with right percutaneous nephrostomy tube placed by Interventional Radiology on 04/18/2025
Now nonoliguric and creatinine down to 2.8
IV fluids x 1 more day
renal dose all medications for GFR less than 10 until we reach a steady state
admitting creatinine 2 uncertain to baseline
-
-
Date of Service: April 19, 2025
CC / HPI / ROS
-
Chief Complaint:
KULDIP
History of Present Illness:
Creatinine down to 2.8 following right percutaneous nephrostomy tube placement 04/18/2025
hemodynamically stable
Review of Systems:
non oliguric via right PCN
Labs
-
Labs:
WBC 11.4 10^3/uL (4.8-10.8) H 04/19/25 03:57
RBC 3.31 10^6/uL (4.20-5.40) L 04/19/25 03:57
Hgb 9.9 g/dL (12.0-16.0) L 04/19/25 03:57
Hct 28.8 % (37.0-47.0) L 04/19/25 03:57
Plt Count 272 10^3/uL (130-400) 04/19/25 03:57
Sodium 135 mmol/L (135-145) 04/19/25 03:57
Potassium 3.6 mmol/L (3.5-5.1) 04/19/25 03:57
Chloride 101 mmol/L (98-107) 04/19/25 03:57
Carbon Dioxide 24 mmol/L (22-30) 04/19/25 03:57
BUN 30 mg/dl (7-17) H 04/19/25 03:57
Creatinine 2.8 mg/dL (0.6-1.0) H 04/19/25 03:57
eGFR 16.45 04/19/25 03:57
Glucose 127 mg/dl (70-99) H 04/19/25 03:57
Calcium 8.5 mg/dl (8.4-10.2) 04/19/25 03:57
Albumin 4.3 g/dl (3.5-5.0) 04/16/25 20:07
Physical Exam
-
Vital Signs:
Vital Signs
Temp Pulse Resp BP Pulse Ox
98.3 F 80 12 135/72 93
04/19/25 08:57 04/19/25 08:57 04/19/25 08:57 04/19/25 08:57 04/19/25 08:57
Cardiovascular:: Regular rate and rhythm
Respiratory:: Bilateral: CTA
Lung Excursion:: Normal
Abdomen:: Nontender
Bowel Sounds:: Normal
Extremity Edema:: None: Bilateral:
Other Findings::
right PCN
--- NOTE | 2025-04-19 15:01 | CM ---
Chart reviewed. Care ongoing.
Urology advising VN at discharge
IVF one more day
Plan: Home, discuss VN w/ patient
[2025-04-19] MEDS: 0.45%NACL 1000 IV (16:28)
[2025-04-19 16:55] VITALS: BP 140/61
[2025-04-19] MEDS: STERILE WATER FOR INJECTION IV (20:30)
[2025-04-19 23:30] VITALS: BP 166/81
[2025-04-20] MEDS: TYLENOL 500 MG PO (01:14)
[2025-04-20 01:17] VITALS: BP 152/83
[2025-04-20] MEDS: 0.45%NACL 1000 IV (03:45)
[2025-04-20 06:00] VITALS: BMI 21.3
[2025-04-20 07:00] VITALS: BP 155/76
[2025-04-20 08:44] LABS: Hematocrit 26.5 % (37.0-47.0); Hemoglobin 9.0 g/dL (12.0-16.0); Mean Corp Hgb Conc. 34.0 g/dL (33.0-37.0); Mean Corpuscular Volume 85.2 fL (81.0-99.0); Platelet Count 212 10^3/uL (130-400); Red Cell Dist. Width 13.1 % (11.5-14.5)
--- NOTE | 2025-04-20 08:51 | W.PN.HOSP.TC ---
Today's Communication/Plan
-
Replete potassium. Discharge planning
Assessment / Plan
Assessment / Plan
Physical exam:
General: Acute on chronically ill
HEENT: Normocephalic, Atraumatic and Moist Mucous Membranes
Respiratory: Clear to Auscultation; Negative Wheezes, Rales or Rhonchi
Cardiac: Regular Rhythm and S1/S2
GI: Soft, Nontender and Nondistended
Musculoskeletal: No Clubbing, No Cyanosis and No Edema
Neuro: Awake, Alert and Disoriented, no neurological deficits
Psych: Calm, limited judgment and insight
A/P:
KULDIP:
Likely due to obstructive uropathy with right hydroureteronephrosis secondary to malignant stricture and compression from tumor
Status post right percutaneous nephrostomy by IR on 04/18 (noted with rupture of right renal collecting system by proceduralist prior to procedure)
Remains on bicarb drip-->Will change composition of fluids.
Nephrology consult appreciated
IR eval appreciated
Urology consult appreciated
No clear evidence of active infection so discontinued antibiotics.
PT OT eval
Creatinine down to 1.0 today (peak at 5.2)
Stop IV fluids
Urology clear her for discharge
Discussed with over the phone today
Plan to discharge either later today or in a.m. depending on electrolytes
Metabolic acidosis:
Acidosis resolved
Hypokalemia:
Replete IV and oral
Recheck later this afternoon and if potassium improving then can possibly discharge later today
Bladder cancer, muscle-invasive:
Plan for initiation of immunotherapy as outpatient
Pain control as needed
Intermittent hematuria:
Likely related to bladder CA
Anemia:
Not far off baseline
Combination of anemia of chronic disease and acute blood loss anemia from transient hematuria
Monitor hemoglobin
Mcdaniel esophagus:
Continue oral PPI
Hypertension:
Start low-dose amlodipine 2.5 mg p.o. daily
Dementia:
Monitor mental status
DVT prophylaxis:
SCDs
CODE STATUS:
Full code
Total time spent on today's encounter was 36 minutes which included time spent in counseling the patient/family regarding diagnosis and treatment plan as listed above, goals of care, and symptom management. Case was discussed with nursing staff,
specialists, and care coordinators/case management. All labs and imaging personally reviewed by me. Remainder the time spent in detailed review of previous records, lab data, imaging, and other medical provider documentation.
Anticipated Discharge: Today
Subjective/Interval History
-
Date of Service: April 20, 2025
No new complaints.
Objective Data
-
Labs:
Laboratory Results
04/20/25
08:04
WBC 7.5
Hgb 9.0 L
Hct 26.5 L
Plt Count 212 D
Sodium Pending
Potassium Pending
Chloride Pending
Carbon Dioxide Pending
BUN Pending
Creatinine Pending
Glucose Pending
Calcium Pending
Vital Signs:
Vital Signs
Temp Pulse Resp BP Pulse Ox
98.8 F 76 16 155/76 96
04/20/25 07:00 04/20/25 07:00 04/20/25 07:00 04/20/25 07:00 04/20/25 07:00
I&O
04/19/25 04/20/25 04/21/25
06:59 06:59 06:59
Intake Total 1250 / 1250 1880 / 1880
Output Total 750 / 750 3875 / 3875
Balance 500 / 500 -1994 /
[2025-04-20 09:16] LABS: Blood Urea Nitrogen 12 mg/dl (7-17); Calcium 7.7 mg/dl (8.4-10.2); Carbon Dioxide 30 mmol/L (22-30); Chloride 98 mmol/L (98-107); Estimated Creatinine Clearance 35 ml/min; Glucose 94 mg/dl (70-99); Potassium 2.9 mmol/L (3.5-5.1); Sodium 132 mmol/L (135-145); eGFR 56.60
[2025-04-20] MEDS: PROTONIX 40 MG PO (09:18)
--- NOTE | 2025-04-20 10:47 | CM ---
Addendum entered by Victorina Roach 04/20/25 15:15:
Patient seen bedside with , agreeable to VN, PT, OT, has had [facility] in past and would referral back to agency. Will place referral in [facility].
Addendum entered by Victorina Roach 04/20/25 14:26:
Correction- Urology recommending home care, PT had not yet assessed patient for needs/recommendations.
Will continue to follow.
Original Note:
CM reviewed chart, patient seen bedside.
CM discussed therapy recommendations of home therapy- patient declining at this time. Patient aware PCP can order home therapy once d/c home.
IMM verbally reviewed, provided with copy, placed in chart.
Patient confirms will transport home.
CM will continue to follow.
Plan; home no needs
--- NOTE | 2025-04-20 11:52 | W.PN.NEPH.PH ---
Today's Communication / Plan
-
Potassium repletion
DC IV fluid
KULDIP resolved
Assessment/Plan
-
79y F with PMH significant for breast cancer, uterine cancer and recently diagnosed bladder cancer who presents to ED complaining of generalized fatigue and RLQ abdominal pain. patient was found to have obstructive uropathy and acute kidney
injury
renal consult for acute kidney injury
imaging on this admission shows right hydronephrosis with a left internal double-J stent an atrophic kidney.
previous recent history hospitalized at [facility] 03/13 - 03/16 for evaluation of persistent hematuria which had been present for about a month at that point. She had completed two courses of outpatient abx for suspected UTI with no
improvement in the hematuria. Imaging at [facility] revealed L hydronephrosis with 5.5cm bladder mass. Patient underwent TURBT on 03/14. Pathology revealed invasive high-grade bladder carcinoma. She underwent L PCN on 03/15 and was discharged to
home on 03/16.
She underwent conversion of L PCN to double-J stent on 03/26.
All history was obtained in reviewing the chart discussion with the medicine as the patient has baseline dementia.
Admitted with a creatinine of 2 progressive over 48 hours currently 5.2
impression
acute kidney injury secondary to obstructive uropathy right-sided hydronephrosis
metabolic acidosis secondary to obstruction
mild hyponatremia
plan
decompression with right percutaneous nephrostomy tube placed by Interventional Radiology on 04/18/2025
Now nonoliguric and creatinine down to 1.0
Discontinue hypotonic IV fluids which should improve hyponatremia
Aggressive potassium repletion of 8200 mill equivalents today both IV and p.o. provided by primary service
-
-
Date of Service: April 20, 2025
CC / HPI / ROS
-
Chief Complaint:
KULDIP
History of Present Illness:
Creatinine down to 1.0following right percutaneous nephrostomy tube placement 04/18/2025
hemodynamically stable
Potassium 2 point
Review of Systems:
non oliguric via right PCN
Labs
-
Labs:
WBC 7.5 10^3/uL (4.8-10.8) 04/20/25 08:04
RBC 3.11 10^6/uL (4.20-5.40) L 04/20/25 08:04
Hgb 9.0 g/dL (12.0-16.0) L 04/20/25 08:04
Hct 26.5 % (37.0-47.0) L 04/20/25 08:04
Plt Count 212 10^3/uL (130-400) D 04/20/25 08:04
eGFR 56.60 04/20/25 08:04
Albumin 4.3 g/dl (3.5-5.0) 04/16/25 20:07
Physical Exam
-
Vital Signs:
Vital Signs
Temp Pulse Resp BP Pulse Ox
98.8 F 76 16 155/76 96
04/20/25 07:00 04/20/25 07:00 04/20/25 07:00 04/20/25 07:00 04/20/25 07:00
Cardiovascular:: Regular rate and rhythm
Respiratory:: Bilateral: CTA
Lung Excursion:: Normal
Abdomen:: Nontender
Bowel Sounds:: Normal
Extremity Edema:: None: Bilateral:
Claire Catheter: No
Other Findings::
Right PCN
[2025-04-20] MEDS: KCL 40 MEQ PO ×2 (12:20→17:07)
[2025-04-20] MEDS: KCL 160 MEQ IV (12:20)
[2025-04-20] MEDS: NORVASC 2.5 MG PO (12:23)
[2025-04-20 14:20] VITALS: BP 189/104
[2025-04-20 14:23] VITALS: BP 186/104
[2025-04-20 15:00] VITALS: BP 165/96
--- NOTE | 2025-04-20 16:42 | W.PN.GENERIC ---
Assessment / Plan
-
The site was re-dressed with a bulky dressing to relieve discomfort from laying on the tube/insertion site.
The catheter is to be flushed with 10cc NSS once a day. The pt's was taught how to do this. Flushing and care information sheet was reviewed then placed on pt's chart along with Rx for flushes.
Pt's plans to f/u with pt's previous urologist and doctor in [facility] He was advised to call Dr. Correa's office with any issues or concerns until he can re-establish care with previous doctors.
Physician Progress Note
Subjective
Pt sitting in chair, in NAD with bedside. Pt reports discomfort at times around the nephrostomy insertion site especially while putting pressure on it.
Objective
Vital Signs
Temp Pulse Resp BP Pulse Ox
98.8 F 86 16 153/79 96
04/20/25 07:00 04/20/25 12:23 04/20/25 07:00 04/20/25 12:23 04/20/25 08:15
Lab Results
04/20/25 08:04
Pt with recently Dx bladder CA. She had left nephrostomy placed and subsequently a left double J stent inserted at an outside hospital ([facility] Pt presented to [facility] with right hydronephrosis secondary to extrinsic compression. A
right nephrostomy tube was placed on 04/18/25.
The catheter is draining well with clear, pale yellow urine in the bag. Creatinine is WNL. The insertion site is clean and dry without erythema or leakage. Pt denies tenderness to palpation.
[2025-04-20 18:01] LABS: Blood Urea Nitrogen 12 mg/dl (7-17); Calcium 8.3 mg/dl (8.4-10.2); Carbon Dioxide 26 mmol/L (22-30); Chloride 96 mmol/L (98-107); Estimated Creatinine Clearance 35 ml/min; Glucose 92 mg/dl (70-99); Potassium 4.0 mmol/L (3.5-5.1); Sodium 131 mmol/L (135-145); eGFR 56.60
--- NOTE | 2025-04-20 20:02 | PTCARENOTE ---
Late entry: Pt potassium level resulted, 4.0, able to dc this evening. Pt nervous and not comfortable taking pt home this late and feels safer to do tomorrow. TT to Dr. Morris, agreeable since family is not comfortable.
[2025-04-20] MEDS: STERILE WATER FOR INJECTION IV (20:34)
[2025-04-20 23:00] VITALS: BP 156/79
[2025-04-21 05:24] VITALS: BMI 21.2
[2025-04-21 07:00] VITALS: BP 147/79
--- NOTE | 2025-04-21 07:51 | W.DCSUMMARY ---
Discharge Summary
Discharge Data
Date of Admission: 04/17/25
Date of Discharge: 04/21/25
Total time spent discharging patient (in min): 35
-
Pending Results: No
Hospital Course
Patient 79 years old female history of bladder cancer, dementia, came into the hospital with KULDIP. Nephrology and urology were consulted. Patient was discovered to have obstructive uropathy from tumor compression extrinsically therefore IR
consulted for percutaneous nephrostomy. Patient underwent right PCN without any problems. Her creatinine was as bad as 5.2 and after hydration and relief of obstruction her creatinine went back back to normal at 1.0. Her potassium was low and
repleted accordingly. Patient is back to her baseline and she is being discharged in relatively stable condition today with home health arrangements.
Discharge duration: 35 minutes
Discharge Plan
-
Patient Disposition: Home with Home Care
Discharge Diagnosis/Procedures: Acute kidney injury due to obstructive uropathy. Advanced bladder cancer. Hypokalemia. Metabolic acidosis, resolved. Hypertension.
Diet: Low Cholesterol
Activity: As tolerated
Blood Work: Please PCP to order CBC, BMP within 1 week
Referrals:
Karan Vilchis MD [Family Provider, Family Practice] - in less than 1 week
Prescriptions:
New
amlodipine 2.5 mg Tablet
2.5 mg PO DAILY 30 Days Qty: 30 0RF
Continued
rabeprazole [AcipHex] 20 mg Tablet,Delayed Release (Dr/Ec)
20 mg PO DAILY
acetaminophen 500 mg Tablet
500 mg PO Q6H PRN (Reason: pain)
diphenhydramine HCl [Benadryl] 25 mg Capsule
25 mg PO HS PRN (Reason: sleep)
tamoxifen 20 mg Tablet
20 mg PO DAILY
Discharge Orders:
Discharge Patient (As Directed); Ordered 04/20/25
Ordered By: Ashok Morris
Discharge Date and Time
Discharge Date/Time: 04/21/25 11:58
Print Language: SWISS
--- NOTE | 2025-04-21 08:16 | W.PN.HOSP.TC ---
Today's Communication/Plan
-
Discharge planning today
Assessment / Plan
Assessment / Plan
Physical exam:
General: Chronically ill. No acute distress
HEENT: Normocephalic, Atraumatic and Moist Mucous Membranes
Respiratory: Clear to Auscultation; Negative Wheezes, Rales or Rhonchi
Cardiac: Regular Rhythm and S1/S2
GI: Soft, Nontender and Nondistended
Musculoskeletal: No Clubbing, No Cyanosis and No Edema
Neuro: Awake, Alert and Disoriented, no neurological deficits
Psych: Calm, limited judgment and insight
A/P:
KULDIP:
Likely due to obstructive uropathy with right hydroureteronephrosis secondary to malignant stricture and compression from tumor
Status post right percutaneous nephrostomy by IR on 04/18 (noted with rupture of right renal collecting system by proceduralist prior to procedure)
Remains on bicarb drip-->Will change composition of fluids.
Nephrology consult appreciated
IR eval appreciated
Urology consult appreciated
No clear evidence of active infection so discontinued antibiotics.
PT OT eval
Creatinine down to 1.0 today (peak at 5.2)
Stop IV fluids
Urology clear her for discharge
Discussed with over the phone yesterday
Plan to discharge today (could not transport yesterday apparently)
Metabolic acidosis:
Acidosis resolved
Hypokalemia:
Replete IV and oral
Recheck later this afternoon and if potassium improving then can possibly discharge later today
Bladder cancer, muscle-invasive:
Plan for initiation of immunotherapy as outpatient
Pain control as needed
Intermittent hematuria:
Likely related to bladder CA
Anemia:
Not far off baseline
Combination of anemia of chronic disease and acute blood loss anemia from transient hematuria
Monitor hemoglobin
Mcdaniel esophagus:
Continue oral PPI
Hypertension:
Start low-dose amlodipine 2.5 mg p.o. daily
Dementia:
Monitor mental status
DVT prophylaxis:
SCDs
CODE STATUS:
Full code
Total time spent on today's encounter was 35 minutes which included time spent in counseling the patient/family regarding diagnosis and treatment plan as listed above, goals of care, and symptom management. Case was discussed with nursing staff,
specialists, and care coordinators/case management. All labs and imaging personally reviewed by me. Remainder the time spent in detailed review of previous records, lab data, imaging, and other medical provider documentation.
Anticipated Discharge: Today
Subjective/Interval History
-
Date of Service: April 21, 2025
Patient chandler snot voice any complaints
Objective Data
-
Labs:
Laboratory Results
04/21/25
06:00
WBC Pending
Hgb Pending
Hct Pending
Plt Count Pending
Sodium Pending
Potassium Pending
Chloride Pending
Carbon Dioxide Pending
BUN Pending
Creatinine Pending
Glucose Pending
Calcium Pending
Vital Signs:
Vital Signs
Temp Pulse Resp BP Pulse Ox
98.8 F 89 15 156/79 98
04/20/25 23:00 04/20/25 23:00 04/20/25 23:00 04/20/25 23:00 04/20/25 23:00
I&O
04/20/25 04/21/25 04/22/25
06:59 06:59 06:59
Intake Total 1879 / 1879
Output Total 5 / 5 3170 / 3170
Balance -1994 / -1994 -3159 / -316
[2025-04-21] MEDS: PROTONIX 40 MG PO (08:50)
[2025-04-21] MEDS: NORVASC 2.5 MG PO (08:50)
[2025-04-21 10:01] LABS: Hematocrit 29.3 % (37.0-47.0); Hemoglobin 9.8 g/dL (12.0-16.0); Mean Corp Hgb Conc. 33.4 g/dL (33.0-37.0); Mean Corpuscular Volume 87.7 fL (81.0-99.0); Platelet Count 274 10^3/uL (130-400); Red Cell Dist. Width 13.3 % (11.5-14.5)
[2025-04-21 10:18] LABS: Blood Urea Nitrogen 12 mg/dl (7-17); Calcium 8.5 mg/dl (8.4-10.2); Carbon Dioxide 24 mmol/L (22-30); Chloride 103 mmol/L (98-107); Estimated Creatinine Clearance 35 ml/min; Glucose 86 mg/dl (70-99); Potassium 3.9 mmol/L (3.5-5.1); Sodium 134 mmol/L (135-145); eGFR 56.60
[2025-04-21 11:11] VITALS: BP 110/62
--- NOTE | 2025-04-21 11:56 | W.PN.NEPH.PH ---
Today's Communication / Plan
-
Will sign off
No renal follow-up needed
Assessment/Plan
-
79y F with PMH significant for breast cancer, uterine cancer and recently diagnosed bladder cancer who presents to ED complaining of generalized fatigue and RLQ abdominal pain. patient was found to have obstructive uropathy and acute kidney
injury
renal consult for acute kidney injury
imaging on this admission shows right hydronephrosis with a left internal double-J stent an atrophic kidney.
previous recent history hospitalized at [facility] 03/13 - 03/16 for evaluation of persistent hematuria which had been present for about a month at that point. She had completed two courses of outpatient abx for suspected UTI with no
improvement in the hematuria. Imaging at [facility] revealed L hydronephrosis with 5.5cm bladder mass. Patient underwent TURBT on 03/14. Pathology revealed invasive high-grade bladder carcinoma. She underwent L PCN on 03/15 and was discharged to
home on 03/16.
She underwent conversion of L PCN to double-J stent on 03/26.
All history was obtained in reviewing the chart discussion with the medicine as the patient has baseline dementia.
Admitted with a creatinine of 2 progressive over 48 hours currently 5.2
impression
acute kidney injury secondary to obstructive uropathy right-sided hydronephrosis
metabolic acidosis secondary to obstruction
mild hyponatremia
plan
decompression with right percutaneous nephrostomy tube placed by Interventional Radiology on 04/18/2025
Now nonoliguric and creatinine down to 1.0
Discontinue hypotonic IV fluids with improvement sodium to 134
Will sign off
No renal follow-up needed
-
-
Date of Service: April 21, 2025
CC / HPI / ROS
-
Chief Complaint:
KULDIP
History of Present Illness:
Creatinine down to 1.0following right percutaneous nephrostomy tube placement 04/18/2025
hemodynamically stable
Review of Systems:
non oliguric via right PCN
Labs
-
Labs:
WBC 7.4 10^3/uL (4.8-10.8) 04/21/25 08:29
RBC 3.34 10^6/uL (4.20-5.40) L 04/21/25 08:29
Hgb 9.8 g/dL (12.0-16.0) L 04/21/25 08:29
Hct 29.3 % (37.0-47.0) L 04/21/25 08:29
Plt Count 274 10^3/uL (130-400) D 04/21/25 08:29
Sodium 134 mmol/L (135-145) L 04/21/25 08:29
Potassium 3.9 mmol/L (3.5-5.1) 04/21/25 08:29
Chloride 103 mmol/L (98-107) 04/21/25 08:29
Carbon Dioxide 24 mmol/L (22-30) 04/21/25 08:29
BUN 12 mg/dl (7-17) 04/21/25 08:29
Creatinine 1.0 mg/dL (0.6-1.0) 04/21/25 08:29
eGFR 56.60 04/21/25 08:29
Glucose 86 mg/dl (70-99) 04/21/25 08:29
Calcium 8.5 mg/dl (8.4-10.2) 04/21/25 08:29
Albumin 4.3 g/dl (3.5-5.0) 04/16/25 20:07
Physical Exam
-
Vital Signs:
Vital Signs
Temp Pulse Resp BP Pulse Ox
98 F 65 16 110/62 96
04/21/25 11:11 04/21/25 11:11 04/21/25 11:11 04/21/25 11:11 04/21/25 11:11
Cardiovascular:: Regular rate and rhythm
Respiratory:: Bilateral: CTA
Lung Excursion:: Normal
Abdomen:: Nontender
Bowel Sounds:: Normal
Extremity Edema:: None: Bilateral:
Claire Catheter: No
Other Findings::
Right PCN
== END 2025-04-21 11:58 | disposition home health service (06) | DRG 683 ==
LOC: 4 WEST ACU 00:53
PROVIDERS: Internal Medicine; Physician Assistant; Radiology Vascular & Interventional Radiology; Surgery; ADMITTING PHYSICIAN Hospitalist; ATTENDING PHYSICIAN Hospitalist; CONSULT PHYSICIAN Internal Medicine Nephrology; EMERGENCY PHYSICIAN Emergency Medicine; FAMILY PHYSICIAN Family Medicine
PROC: 0T9030Z Drainage of Right Kidney with Drainage Device, Percutaneous Approach (ICD-10-PCS; 2025-04-18)
DX: N17.9 Acute kidney failure, unspecified (principal); D62 Acute posthemorrhagic anemia; E87.1 Hypo-osmolality and hyponatremia; E87.20 Acidosis, unspecified; C67.9 Malignant neoplasm of bladder, unspecified; N13.6 Pyonephrosis; K21.9 Gastro-esophageal reflux disease without esophagitis; K22.70 Barrett's esophagus without dysplasia; D64.9 Anemia, unspecified; I10 Essential (primary) hypertension; E87.6 Hypokalemia
CPT/HCPCS: 50432; 74176; 80048; 80053; 81003; 81015; 82607; 82728; 82746; 83540; 83550; 85025; 85027; 85610; 87086; 96361; 96374; 96375; 97163; 97167; 99152; 99285; C1729; C1769